=== PATIENT | female | born 1950 | race Caucasian/White ===

== ENCOUNTER 2018-11-15 00:21 | Emergency (ER) | payer MEDICARE, BC ==
[~2018-11-15] VITALS: Ht 157.5 cm; Wt 63.5 kg
[2018-11-15] MEDS ORDERED: ARIPIPRAZOLE 2 MG TABLET (00:34)
[2018-11-15] MEDS ORDERED: HYDROCODONE-ACETAMIN 10-325 MG (00:34)
[2018-11-15] MEDS ORDERED: NITR100C11 PO (00:34)
[2018-11-15] MEDS ORDERED: HYDROCODONE/APAP 5-325MG TABLET PO ONE (01:45)
[2018-11-15] MEDS ORDERED: HYDROCODONE/APAP 5-325MG TABLET ONE (01:48)
[2018-11-15 02:43] VITALS: BP 117/83
== END 2018-11-15 02:44 | disposition home or self-care (01) ==
LOC: ER 00:24
DX: K44.9 Diaphragmatic hernia without obstruction or gangrene (principal); J45.909 Unspecified asthma, uncomplicated; G43.909 Migraine, unspecified, not intractable, without status migrainosus; E78.5 Hyperlipidemia, unspecified; Z79.899 Other long term (current) drug therapy
CPT/HCPCS: A4663